=== PATIENT | male | born 1950 | race Caucasian/White ===

== ENCOUNTER 2017-07-08 16:19 | Emergency (ER) | payer OTHER ==
[2017-07-08 16:36] VITALS: BP 147/88
[2017-07-08] MEDS ORDERED: Tetan/Diph/Pertus SYR(Tdap)* 0.5 ML SYR(BOOSTRIX) use SYR IM ONE (16:40)
--- NOTE | 2017-07-08 16:54 | UC ---
Laceration HPI - HPI Summary HPI Summary: 67 y/o male presents to the urgent care c/o cutting lateral side of his RT 5th finger w/ a mandolin while cutting carrots this afternoon around 1600PM. Pt reports he peeled off his skin and bleeding is not stopped. Pain is 3/10. Pt thinks he is UTD w/ his tetanus shot. Pt can move his finger w/ maru difficulty and deneis numbness or tingling sensation over his RT 5th finger. Also denies SOB, chest pain, abdominal pain. N/V/D - History Of Current Complaint Chief Complaint: UCLaceration Stated Complaint: CUT FINGER Time Seen by Provider: 07/08/17 16:53 Laceration Location: Finger - lateral side of 5th finger laceration w/ skin avulsion Mechanism Of Injury: Sharp Trauma Severity: Mild Pain Intensity: 3 Pain Scale Used: 0-10 Numeric Aggravating Factors: Movement Related History: Dominant Hand Right - Allergies/Home Medications Allergies/Adverse Reactions: Allergies Allergy/AdvReac Type Severity Reaction Status Date / Time No Known Allergies Allergy Verified 07/08/17 16:36 PMH/Surg Hx/FS Hx/Imm Hx Previously Healthy: Yes Cardiovascular History: Cardiac Disease, Hypertension - Surgical History Surgical History: Yes Surgery Procedure, Year, and Place: 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 HERNIA x3. NOSE SURGERY - Family History Known Family History: Positive: Hypertension - Social History Occupation: Employed Full-time Lives: With Family Alcohol Use: Daily Substance Use Type: None Smoking Status (MU): Never Smoked Tobacco - Immunization History Hx Tetanus, Diphtheria Vaccination: Yes - 2014 Review of Systems Constitutional: Negative Skin: Other - Rt 5th finger w/ laceration and skin avulsion Eyes: Negative ENT: Negative Respiratory: Negative Cardiovascular: Negative Gastrointestinal: Negative Genitourinary: Negative Motor: Negative Neurovascular: Negative Musculoskeletal: Negative Neurological: Negative Psychological: Negative Is Patient Immunocompromised?: No All Other Systems Reviewed And Are Negative: Yes Physical Exam - Summary Physical Exam Summary: Vital Signs Reviewed: Yes General: well developed, well nourished female sitting in the examining table w/ o any apparent distress Eye Exam: Normal Eyes: Positive: Conjunctiva Clear - PERRLA, EOMI, fundi grossly normal ENT: Positive: Normal ENT inspection, Hearing grossly normal, Pharynx normal, TMs normal Neck: Positive: Supple, Nontender, No Lymphadenopathy Respiratory: Positive: Chest non-tender, Lungs clear, Normal breath sounds, No respiratory distress Cardiovascular: Positive: RRR, No Murmur, Pulses Normal, Brisk Capillary Refill Abdomen Description: Positive: Nontender, No Organomegaly, Soft. Negative: CVA Tenderness (R), CVA Tenderness (L) Bowel Sounds: Positive: Present Musculoskeletal: Positive: Strength Intact, ROM Intact, No Edema Neurological: Positive: Alert, Muscle Tone Normal Psychological Exam: Normal Skin: Positive:Lateral side of RT #5th phalanx w/ a lacerated skin avulsion about 3.5cm in size. subcutaneous tissue is seen, No foreign body observed, bleeding is active. mild tenderness to palpation. FROM to the 5th phalnx. FROM of RT hand, sensation intact, capillary refill brisk, and pulses WNL. Triage Information Reviewed: Yes Vital Signs: Initial Vital Signs Temp 98.4 F 07/08/17 16:30 Pulse 77 07/08/17 16:30 Resp 18 07/08/17 16:30 BP 147/88 07/08/17 16:30 Pulse Ox 98 07/08/17 16:30 Laceration Repair - Laceration Repair 1 Description: Irregular - triagular shape skin avulsion on the lateral side of the RT 5th phalanx : No Repair Necessary - skin avulsion. bleeding stopped w/ GELFOAM Laceration Size After Repair: Length (cm) - 3.5 cm Modified For Repair: Yes Cleansing Completed Via Routine Prep: Yes Irrigation With Pressure Irrigation Device: Yes Laceration Course/Dx - Course/Dx Course Of Treatment: 67 y/o male presents to the urgent care c/o cutting lateral side of his RT 5th finger w/ a mandolin while cutting carrots this afternoon around 1600PM. Pt reports he peeled off his skin and bleeding is not stopped. Pain is 3/10. Pt thinks he is UTD w/ his tetanus shot. Pt can move his finger w/ maru difficulty and deneis numbness or tingling sensation over his RT 5th finger. Also denies SOB, chest pain, abdominal pain. N/V/D. Hx obtained. Pt w/ lacerated skin avulsion on lateral side of the RT 5th phalanx about 3.5cm in size, in an irregular triangular shape,active bleeding, FROM of finger, neurovascular intact on examination. LACERATION PROCEDURE NOTE: . Copious irrigation was done with saline and the wound explored. There was no FB or deep structure injury noted. wound cleaned w/ Iodine swabs. bleeding still active. GelFoam applied and bleeding stopped. 4 steri strips applied to hold gelfoam. Wound dressed w/ sterile gauze. Finger immobilzied w/ a finger splint in functional position body tape w/ adjancen finger and wrapped w/ karla-bandage. The Pt tolerated the procedure well without adverse effects. Neurovascular intact and FROM of finger. Tdap given in 2014 as per records. Pt advised if any signs of infection develop to immediately return to the urgent care of PCP for further management and treatment. Pt's BP is elevated today advised to decrease salt in diet, monitor BP and f/u with PCP for further management. Pt understood and agreed and left the clinic ambulating A&Ox3. - Differential Dx - Laceration/Wound Differental Diagnoses: Abrasion, Avulsion, Laceration, Puncture Wound, Tendon Laceration Provider Diagnoses: 1- Lateral side of RT 5th phalanx skin avulsion repair. 2- Uncontrolled HTN Discharge - Sign-Out/Discharge Documenting (check all that apply): Discharge/Admit/Transfer - D/C home - Discharge Plan Condition: Stable Disposition: HOME Patient Education Materials: Finger Laceration (ED), Skin Avulsion (ED), Low- Sodium Diet (ED) Referrals: Daniel Lopez MD [Primary Care Provider] - 3 Days Additional Instructions: 1-Please Keep wound clean and dry w/ the Gelfoam. Please apply Bacitracin topical BID after Gelfoam is gone to avoid infection and keep wound cover 2-Take Ibuprofen or Tylenol PO q6-8hrs prn for pain or swelling. 3- If you develop fever or redness around your finger please return to the Urgent care or F/u w/ your PCP 4-Your BP is elevated today. please decrease salt in your diet, monitor BP and if it continues to be elevated please f/u with your PCP for further management - Billing Disposition and Condition Condition: STABLE Disposition: HOME
[2017-07-08] MEDS ORDERED: Gelfoam 12-7 ADSORBABL SPONGE* 1 EA SPONGE TOPICAL ONE (17:27)
== END 2017-07-08 18:29 | disposition home or self-care (01) ==
LOC: UCEAST 16:19
DX: S61.216A Laceration without foreign body of right little finger without damage to nail, initial encounter (principal); W27.4XXA Contact with kitchen utensil, initial encounter; Y93.9 Activity, unspecified; Y92.9 Unspecified place or not applicable
CPT/HCPCS: 99211; A9270-GY; G0463